=== PATIENT | male | born 1965 | race Caucasian/White ===

== ENCOUNTER 2018-10-19 10:30 | Emergency (ER) | payer BC, OTHER ==
[2018-10-19] MEDS ORDERED: NS 1,000 ML IV ONE (10:39)
--- NOTE | 2018-10-19 10:57 | EDPHY ---
HPI/HX/ROS/PE/MDM Narrative: CHIEF COMPLAINT: Tachycardia, dizziness HPI: The patient is a 53-year-old male with no history of coronary artery disease. He states that he was doing some aggressive [place] skiing earlier this morning and when he stopped to adjust his boot, he felt a rapid heart rate as well as some dizziness. He states this is similar to prior episodes he has had over the years for which he has had extensive cardiac workup that has proven to be negative. The patient states that his home aid thinks that he likely has paroxysmal atrial fibrillation. The patient denies chest pain at any point either before, during or after this episode. He now feels asymptomatic. REVIEW OF SYSTEMS: Aside from elements discussed in the HPI, a comprehensive 10-point review of systems was reviewed and is negative. PMH: Includes history of prior tachycardic episodes with negative workup. No known history of coronary artery disease or [place]. 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 PHYSICAL EXAM: General:Patient is alert, in no acute distress. ENT:Eyes are normal to inspection. ENT inspection normal. Neck: Normal inspection. Full range of motion. Respiratory:No respiratory distress. Breath sounds normal bilaterally. Cardiovascular: Regular rate and rhythm. Strong peripheral pulses. Normal cap refill. Abdomen:The abdomen is nontender to palpation. There are no peritoneal signs. There are normal bowel sounds. Back: Normal to inspection. No tenderness to palpation. Skin: Normal color. No rash. Warm and dry. Extremities: Normal appearance. Full range of motion. Neuro: Oriented x3. Normal motor function. Normal sensory function. MDM: This patient presents with an episode of tachycardia and weakness that occurred after heavy exertion. He has a very abnormal EKG. However, review of his records and the patient himself notes that patient has a history of abnormal EKG and his head several episodes similar to this current 1 which have resulted negative workups in the past. The patient is an avid athlete and regularly performs strenuous activity without any symptoms. Workup here in the emergency department did not show evidence of acute coronary syndrome, anemia or electrolyte disturbance. The patient is now completely asymptomatic. I had extensive discussion with him and specifically stated that his presentation and abnormal EKG certainly promise further workup and that we would be happy to admit him to the hospital for Cardiology consultation and telemetry monitoring. However, given that this feels very similar to him to prior episodes, he chooses to decline this and I have strongly encouraged him to follow up with home aid as an outpatient. - Data Points Imaging Results: Imaging Impressions Chest X-Ray 10/19/18 10:49 Impression: Chronic mild cardiomegaly with mild pulmonary venous hypertension. Laboratory Results: Laboratory Results 10/19/18 10:50 10/19/18 10:50 10/19/18 10/19/18 10/19/18 10:53 10:50 10:50 WBC 9.02 10^3/uL 10^3/uL (3.80-9.50) RBC 4.75 10^6/uL 10^6/uL (4.40-6.38) Hgb 14.7 g/dL g/dL (13.7-17.5) Hct 43.8 % % (40.0-51.0) MCV 92.2 fL fL (81.5-99.8) MCH 30.9 pg pg (27.9-34.1) MCHC 33.6 g/dL g/dL (32.4-36.7) RDW 12.9 % % (11.5-15.2) Plt Count 253 10^3/uL 10^3/uL (150-400) MPV 9.8 fL fL (8.7-11.7) Neut % (Auto) 75.9 % H % (39.3-74.2) Lymph % (Auto) 15.6 % % (15.0-45.0) [place] % (Auto) 7.0 % % (4.5-13.0) Eos % (Auto) 0.9 % % (0.6-7.6) Baso % (Auto) 0.4 % % (0.3-1.7) Nucleat RBC Rel Count 0.0 % % (0.0-0.2) Absolute Neuts (auto) 6.84 10^3/uL H 10^3/uL (1.70-6.50) Absolute Lymphs (auto) 1.41 10^3/uL 10^3/uL (1.00-3.00) Absolute Monos (auto) 0.63 10^3/uL 10^3/uL (0.30-0.80) Absolute Eos (auto) 0.08 10^3/uL 10^3/uL (0.03-0.40) Absolute Basos (auto) 0.04 10^3/uL 10^3/uL (0.02-0.10) Absolute Nucleated RBC 0.00 10^3/uL 10^3/uL (0-0.01) Immature Gran % 0.2 % % (0.0-1.1) Immature Gran # 0.02 10^3/uL 10^3/uL (0.00-0.10) Sodium 137 mEq/L mEq/L (135-145) Potassium 4.8 mEq/L mEq/L (3.5-5.2) Chloride 106 mEq/L mEq/L (97-110) Carbon Dioxide 23 mEq/l mEq/l (22-31) Anion Gap 8 mEq/L mEq/L (6-14) BUN 18 mg/dL mg/dL (7-23) Creatinine 1.0 mg/dL mg/dL (0.7-1.3) Estimated GFR > 60 Glucose 98 mg/dL mg/dL (70-100) Calcium 9.3 mg/dL mg/dL (8.5-10.4) POC Troponin I 0.01 ng/mL ng/mL (0.00-0.08) Medications Given: Discontinued Medications Sodium Chloride (Ns) 1,000 mls @ 0 mls/hr IV EDNOW ONE; Wide Open PRN Reason: Protocol Stop: 10/19/18 10:40 Last Admin: 10/19/18 10:53 Dose: 1,000 mls Point of Care Test Results: Chemistry 10/19/18 10:53 POC Troponin I 0.01 ng/mL ng/mL (0.00-0.08) General Time Seen by Provider: 10/19/18 10:48 Initial Vital Signs: Initial Vital Signs Temperature (C) 36.7 C 10/19/18 10:35 Heart Rate 67 10/19/18 10:35 Respiratory Rate 16 10/19/18 10:35 Blood Pressure 128/67 H 10/19/18 10:35 O2 Sat (%) 97 10/19/18 10:35 O2 Delivery Mode Room Air Allergies/Adverse Reactions: No Known Allergies Allergy (Verified 10/19/18 10:34) Home Medications: Medication Instructions Recorded NK [No Known Home Meds] 10/19/18 Departure - Departure Disposition: Home, Routine, Self-Care Clinical Impression: Near syncope Condition: Good Instructions: Near Syncope (ED) Additional Instructions: Follow-up with your primary doctor within 72 hours. Return to the Emergency Department for fever, chest pain, shortness of breath,passing out or other worsening of condition. Follow up with a home aid for further testing, as soon as possible, within one week. Referrals: Shaniqua Posey MD [Primary Care Provider] - As per Instructions
[2018-10-19 11:06] LABS: PLATELET COUNT 253 10^3/uL (150-400)
[2018-10-19 12:23] VITALS: BP 144/84
--- NOTE | 2018-10-19 14:49 | CPEKG ---
Test Reason : OPEN Blood Pressure : / mmHG Vent. Rate : 076 BPM Atrial Rate : 075 BPM P-R Int : 165 ms QRS Dur : 092 ms QT Int : 417 ms P-R-T Axes : 037 095 -01 degrees QTc Int : 469 ms Sinus rhythm Left ventricular hypertrophy Lateral infarct, acute (LAD) Confirmed by Ten Cook ([id number]) on 10/19/2018 2:48:29 PM Referred By: Ten Cook Confirmed By:Ten Cook
== END 2018-10-19 12:28 | disposition home or self-care (01) ==
DX: R55 Syncope and collapse (principal); I27.0 Primary pulmonary hypertension; I51.7 Cardiomegaly; E86.9 Volume depletion, unspecified
CPT/HCPCS: 84484-ER